=== PATIENT | female | born 1985 | race Caucasian/White ===

== ENCOUNTER 2025-04-24 15:05 | Outpatient (REF) | payer OTHER, SELFPAY ==
[2025-04-24 16:29] LABS: MANUAL DIFF FLAG NO
[2025-04-24 17:15] LABS: Hematocrit 42.9 % (37.0-47.0); Hemoglobin 14.5 g/dl (12.0-16.0); Imm Gran Abs Auto 0.01 X10*3/uL (0.00-0.03); Imm Gran Pct Auto 0.1 % (0.0-0.4); Lymphocytes Absolute Auto 2.1 X10*3/uL (1.2-4.9); Mean Corpuscular HGB Conc 33.8 g/dl (31.0-35.0); Mean Corpuscular Hemoglobin 31.0 pg (27.0-33.0); Mean Corpuscular Volume 91.7 fL (80.0-98.0); NRBC Abs Auto 0.000 X10*3/uL (0.0-0.012); NRBC Pct Auto 0.0 /100WBC (0.0-0.2); Platelet Count 252 X10*3/uL (160-400); Red Blood Count 4.68 X10*6/uL (4.20-5.50); White Blood Count 7.8 X10*3/uL (4.8-10.8)
[2025-04-24 17:21] LABS: Hemoglobin A1C 85.1314 umol/L
[2025-04-24 17:44] LABS: Alanine Aminotransferase 35 U/L (0-31); Albumin Level 4.6 g/dL (3.5-5.0); Alkaline Phosphatase 66 U/L (39-117); Anion Gap 10 (12-20); Aspartate Amino Transferase 23 U/L (5-31); Blood Urea Nitrogen 13 mg/dL (9-16); Calcium 9.7 mg/dL (8.4-10.2); Carbon Dioxide 27 mmol/L (22-29); Chloride 107 mmol/L (96-108); Cholesterol 149 mg/dL (<200); Estimated Glomerular Filt Rate > 60; HDL Cholesterol 48 mg/dL (>40); Iron 71 mcg/dL (30-160); Magnesium 2.2 mg/dL (1.6-2.6); Percent Iron Saturation 27 % (15-50); Potassium 4.1 mmol/L (3.3-5.1); Sodium 140 mmol/L (135-145); Total Iron Binding Capacity 264 mcg/dL (228-428); Total Protein 7.3 g/dL (6.5-8.0); Triglycerides 60 mg/dL (<150); Unsaturated Iron Binding 193 ug/dL
[2025-04-24 18:02] LABS: Ferritin 43 ng/mL (10-122)
[2025-04-24 18:11] LABS: Vitamin B12 680 pg/mL (200-900)
--- OUTSIDE RECORDS SUMMARY | 2025-04-24 20:42 | XMS_ITS | Clinical Summary ---
Author Organization [facility] Address [address] [place] [address] Care Team Providers Care Laboratory Equipment Cleaner Name Role Phone Clary Crain MD Primary Care Provider [phone] Allergies No known active allergies Medications Escitalopram Oxalate (LEXAPRO) 10 MG Tab 2 daily Active BusPIRone HCl 30 MG Tab * 60 UNITS = 30 DAY SUPPLY * 60 3 05/10/2016 Active Active Problems No known active problems Social History Tobacco Use Types Packs/Day Years Used Date Smoking Tobacco: Never Smokeless Tobacco: Never Alcohol Use Standard Drinks/Week Comments Not Asked 0 (1 standard drink = 0.6 oz pur e alcohol) Comments Unknown Sex and Gender Information Value Date Recorded Sex Assigned at Not on file Legal Sex Female 2:00 AM EDT Gender Identity Not on file Sexual Orientation Not on file Last Filed Vital Signs Vital Sign Reading Time Taken Comments Blood Pressure 132/90 07/31/2013 12:17 PM EDT Pulse 141 07/31/2013 12:17 PM EDT Temperature 37.2 C (98.9 F) 07/31/2013 12:17 PM EDT Respiratory Rate 16 07/31/2013 12:17 PM EDT Oxygen Saturation 100% 07/07/2012 6:32 PM EST Inhaled Oxygen Concentration - - Weight 43.1 kg (95 lb) 07/31/2013 12:17 PM EDT Height 149.9 cm (4' 11 ) 07/31/2013 12:17 PM EDT Body Mass Index 19.19 07/31/2013 12:17 PM EDT Plan of Treatment Health Maintenance Due Date Last Done Comments Hepatitis C Screening 1987 Pap Smear 2003 DTaP/Tdap/Td (1 - Tdap) 2005 Hep B (1 of 3 - 19+ 3-dose series) 2006 COVID-19 Vaccine (1 - 2024-2 6 season) 2025 Influenza (#1) 2025 Zoster (Shingrix) (1 of 2) 2037 HPV Vaccine (No Doses Required) Completed Hep A Aged Out No longer eligi ble based on patient's age to complete this topic Hib Aged Out No longer eligi ble based on patient's age to complete this topic Meningococcal ACWY Aged Out No longer eligible based on patient's age to complete this topic Pneumococcal Aged Out No longer eligi ble based on patient's age to complete this topic Insurance MEDICAID Care Teams Laboratory Equipment Cleaner Relationship Specialty Start Date End Date Clary Crain MD [address] [place] [address] [phone] PCP - General Internal Medicine 01/17/18
== END 2025-04-24 15:06 | disposition home or self-care (01) ==
LOC: HO.LAB 15:05
PROVIDERS: PCP Internal Medicine; Visit Provider Internal Medicine
DX: I10 Essential (primary) hypertension (principal); E03.9 Hypothyroidism, unspecified; D50.9 Iron deficiency anemia, unspecified; E55.9 Vitamin D deficiency, unspecified; I63.9 Cerebral infarction, unspecified
CPT/HCPCS: 36415; 80053; 80061; 82306; 82607; 82728; 83036; 83540; 83735; 84443; 85025